=== PATIENT | female | born 1950 | race Caucasian/White ===

== ENCOUNTER 2017-07-26 06:33 | Day surgery (SDC) | payer MEDICARE, BC ==
[~2017-07-26 06:33] MED LIST: Lidocaine 1%/Sod Bicarbonate in NS 8.4% 1 ML Syringe PRN; Sodium Chloride 0.9% 10 ML Syringe FLUSH PRN
[2017-07-26] MEDS ORDERED: Propofol 200 MG/20 ML SDV ONE (06:54)
[2017-07-26] MEDS ORDERED: ceFAZolin 1 GM Vial ONE (06:54)
[2017-07-26] MEDS ORDERED: Lactated Ringers 1,000 ML ONE (06:54)
[2017-07-26] MEDS ORDERED: Lidocaine 1% 4 ML ONE (06:54)
[2017-07-26] MEDS ORDERED: Rocuronium 50 MG/5 ML Vial ONE (06:54)
[2017-07-26] MEDS ORDERED: Midazolam 1 MG/ML 2 ML SDV ONE (06:54)
[2017-07-26] MEDS ORDERED: fentaNYL 250 MCG/5 ML SDV ONE (06:54)
[2017-07-26] MEDS ORDERED: Ondansetron 4 MG/2 ML SDV ONE (06:54)
[2017-07-26] MEDS ORDERED: Sodium Chloride 0.9% 50 ML SDV ONE (06:59)
[2017-07-26] MEDS ORDERED: Lidocaine 1% with EPINEPHrine 1:100,000 20 ML MDV ONE (06:59)
[2017-07-26] MEDS: Lactated Ringers 1,000 ML IV SCH ×2 (07:05→11:04)
--- NOTE | 2017-07-26 07:22 | PCM.PREANE ---
Preanesthetic Assessment - Anesthesia/Transfusion/Family Hx Type of Anesthesia Reaction: Excessive Nausea/Vomiting Family History of Anesthesia Reaction: No Transfusion History: No Prior Transfusion(s) - Review of Systems General: No Symptoms Pulmonary: Wheezing (asthma), Cough (asthma) Cardiovascular: No Symptoms Gastrointestinal: No Symptoms Neurological: No Symptoms Other: Reports: None - Physical Assessment NPO Status Date: 07/25/17 NPO Status Time: 21:00 Pulse: 69 O2 Sat by Pulse Oximetry: 95 Respiratory Rate: 16 Blood Pressure: 144/74 Temperature: 99.8 F Height: 5 ft 3 in Weight: 69 kg ASA Class: 2 Mental Status: Alert & Oriented x3 Airway Class: Mallampati = 1 Dentition: Reports: Normal Dentition Thyro-Mental Finger Breadths: 2 Mouth Opening Finger Breadths: 3 ROM/Head Extension: Full Lungs: Clear to Auscultation, Normal Respiratory Effort Cardiovascular: Regular Rate, Regular Rhythm - Lab Values: Laboratory Last Values Urine Color Yellow (Yellow) 07/26/17 06:40 Urine Appearance Clear (Clear) 07/26/17 06:40 Urine pH 6.0 (5.0-8.0) 07/26/17 06:40 Ur Specific [place] 1.020 (1.005-1.030) 07/26/17 06:40 Urine Protein Negative (Negative) 07/26/17 06:40 Urine Glucose (UA) Negative (Negative) 07/26/17 06:40 Urine Ketones Negative (Negative) 07/26/17 06:40 Urine Occult Blood Negative (Negative) 07/26/17 06:40 Urine Nitrite Negative (Negative) 07/26/17 06:40 Urine Bilirubin Negative (Negative) 07/26/17 06:40 Urine Urobilinogen 0.2 (0.2-1.0) 07/26/17 06:40 Ur Leukocyte Esterase 2+ (Negative) H 07/26/17 06:40 Urine RBC Not seen /hpf (0-5) 07/26/17 06:40 Urine WBC 5-10 /hpf (0-5) H 07/26/17 06:40 Ur Epithelial Cells 0-5 /hpf (0-5) 07/26/17 06:40 Urine Bacteria Few /hpf (FEW) 07/26/17 06:40 Urine Mucus Few /hpf (FEW) 07/26/17 06:40 07/06/17 Lytes WNL BUN 19 Cr 0.70 Hgb 14.6 Plt 259 - Imaging/EKG Impressions: 07/26/17 EKG SR rate 68 - Allergies Allergies/Adverse Reactions: Allergies Allergy/AdvReac Type Severity Reaction Status Date / Time Penicillins Allergy Cannot Verified 07/25/17 13:34 Remember - Blood Blood Available: Yes - Acknowledgements Anesthesia Type Planned: General Anesthesia Pt an Appropriate Candidate for the Planned Anesthesia: Yes Alternatives and Risks of Anesthesia Discussed w Pt/Guardian: Yes Pt/Guardian Understands and Agrees with Anesthesia Plan: Yes PreAnesthesia Questionnaire HEENT History: Reports: Impaired Vision Other HEENT History: wears glasses Cardiovascular History: Reports: High Cholesterol, Hypertension Respiratory History: Reports: Asthma, Other (See Below) Other Respiratory History: self diagnoses sleep apnea Gastrointestinal History: Reports: GERD Genitourinary History: Reports: Other (See Below) Other Genitourinary History: UTI, nocuturia, prolapse, vaginitis LEGAL RECORDS MANAGER History: Reports: None Musculoskeletal History: Reports: None Neurological History: Reports: None Psychiatric History: Reports: None Endocrine/Metabolic History: Reports: None Hematologic History: Reports: None Immunologic History: Reports: None Oncologic (Cancer) History: Reports: None Dermatologic History: Reports: None - Past Surgical History Head Surgeries/Procedures: Reports: None HEENT Surgical History: Reports: Tonsillectomy Cardiovascular Surgical History: Reports: Other (See Below) Other Cardiovascular Surgeries/Procedures: patent ductus arteriosus repair Respiratory Surgical History: Reports: None GI Surgical History: Reports: None Female Surgical History: Reports: None Male Surgical History: Reports: None Endocrine Surgical History: Reports: None Neurological Surgical History: Reports: None Musculoskeletal Surgical History: Reports: None Oncologic Surgical History: Reports: None Dermatological Surgical History: Reports: None - SUBSTANCE USE Smoking Status *Q: Never Smoker Tobacco Use Within Last Twelve Months: No Second Hand Smoke Exposure: No Days Per Week of Alcohol Use: 1 (so very little) Recreational Drug Use History: No - HOME MEDS Home Medications: Home Meds Cholecalciferol (Vitamin D3) [Vitamin D3] 5,000 unit PO DAILY 07/25/17 [History] Estradiol [Yuvafem] 10 mcg VAG ASDIRECTED 07/25/17 [History] Flaxseed Oil 1,000 mg PO DAILY 07/25/17 [History] Losartan/Hydrochlorothiazide [Hyzaar 100-12.5 Tablet] 1 tab PO DAILY 07/25/17 [ History] Multivitamin [Zoo Chews] 1 tab PO DAILY 07/25/17 [History] Simvastatin [Zocor] 10 mg PO DAILY 07/25/17 [History] Turmeric Root Extract [Turmeric] 2 cap PO DAILY 07/25/17 [History] Ubidecarenone [Coq-10] 100 mg PO DAILY 07/25/17 [History] - CURRENT (IN HOUSE) MEDS Current Meds: Current Medications Lactated Ringer's (Ringers, Lactated) 1,000 mls @ 125 mls/hr IV ASDIRECTED CALVIN Stop: 07/26/17 23:00 Lidocaine/Sodium Bicarbonate (Buffered Lidocaine 1% In Ns 8.4%) 0.25 ml .XX ONETIME PRN PRN Reason: Prior to IV Start Stop: 07/26/17 18:00 Sodium Chloride (Saline Flush) 10 ml FLUSH ASDIRECTED PRN PRN Reason: Keep Vein Open Stop: 07/26/17 18:00 Discontinued Medications Cefazolin Sodium (Ancef) Confirm Administered Dose 2 gm .ROUTE .STK-MED ONE Stop: 07/26/17 06:55 Fentanyl (Sublimaze) Confirm Administered Dose 250 mcg .ROUTE .STK-MED ONE Stop: 07/26/17 06:55 Lactated Ringer's (Ringers, Lactated) Confirm Administered Dose 1,000 mls @ as directed .ROUTE .STK-MED ONE Stop: 07/26/17 06:55 Lidocaine HCl (Xylocaine-Mpf 1%) Confirm Administered Dose 4 mls @ as directed .ROUTE .STK-MED ONE Stop: 07/26/17 06:55 Lidocaine/Epinephrine (Xylocaine 1% With Epinephrine 1:100,000) Confirm Administered Dose 20 ml .ROUTE .STK-MED ONE Stop: 07/26/17 07:00 Midazolam HCl (Versed 1 Mg/Ml) Confirm Administered Dose 2 mg .ROUTE .STK-MED ONE Stop: 07/26/17 06:55 Ondansetron HCl (Zofran) Confirm Administered Dose 4 mg .ROUTE .STK-MED ONE Stop: 07/26/17 06:55 Propofol (Diprivan 20 Ml) Confirm Administered Dose 200 mg .ROUTE .STK-MED ONE Stop: 07/26/17 06:55 Rocuronium [place] (Zemuron) Confirm Administered Dose 50 mg .ROUTE .[employer]-MED ONE Stop: 07/26/17 06:55 Sodium Chloride (Normal Saline) Confirm Administered Dose 50 ml .ROUTE .Rigel-MED ONE Stop: 07/26/17 07:00
[2017-07-26] MEDS ORDERED: Albuterol 0.083% 2.5 MG/3 ML Neb Soln NEB ONE (07:25)
[2017-07-26] MEDS ORDERED: Scopolamine 1.5 MG Transdermal Patch TRDERM ONE (07:25)
[2017-07-26] MEDS ORDERED: Meperidine PF 50 MG/ML Syringe IVPUSH PRN (08:00)
[2017-07-26] MEDS ORDERED: fentaNYL 100 MCG/2 ML SDV IVPUSH PRN (08:00)
[2017-07-26] MEDS ORDERED: HYDROmorphone 0.5 MG/0.5 ML Syringe IVPUSH PRN (08:00)
[2017-07-26] MEDS ORDERED: Ondansetron 4 MG/2 ML SDV IVPUSH PRN ×2 (08:00→09:00)
[2017-07-26] MEDS ORDERED: Dexamethasone 4 MG/ML 5 ML MDV ONE (08:06)
[2017-07-26] MEDS ORDERED: ePHEDrine 50 MG/ML SDV ONE (08:08)
[2017-07-26] MEDS ORDERED: Ketorolac 30 MG/ML SDV ONE (09:00)
[2017-07-26] MEDS ORDERED: Acetaminophen/oxyCODONE 325-5 MG Tab PO PRN (09:00)
[2017-07-26] MEDS ORDERED: Glycopyrrolate 0.2 MG/ML SDV ONE (09:02)
[2017-07-26] MEDS ORDERED: Neostigmine Methylsulfate 10 MG/10 ML MDV ONE (09:02)
--- NOTE | 2017-07-26 09:07 | PCM.OPNOTE ---
- General Post-Op/Procedure Note Date of Surgery/Procedure: 07/26/17 Operative Procedure(s): Total vaginal hysterectomy, bilateral salpingo- oophorectomy, anterior and posterior vaginal repair with perineoplasty Findings: 1. Grade 3 cystocele. 2. Grade 3 rectocele 3. Grade 3 uterine descensus Pre Op Diagnosis: 1. Grade 3 cystocele. 2. Grade 3 uterine descensus. 3. Grade 3 rectocele Post-Op Diagnosis: Same Anesthesia Technique: General ET Tube Other Anesthesia Type: Lidocaine quarter percent with epinephrine local approximately 30 mL total Primary Surgeon: Abdiel Peguero Secondary Surgeon: Elvis Franco Anesthesia Provider: Tana Edwards Rounding Machine Tender: Karol Larson Pathology: Uterus, bilateral tubes and ovaries in one specimen containing Fluid Replacement, Intraop: 1,700 EBL in mLs: 20 Complications: None Condition: Good Free Text/Narrative:: Surgery duration: 57 minutes Procedure: The patient was placed in supine position on the operating table. She received 2 g of Ancef preoperatively for infection prophylaxis and had sequential compression stockings in place for DVT prophylaxis. General endotracheal anesthesia was accomplished. After positioning, and adequate prep and drape, the procedure was then performed. Sterile speculum was placed in the vagina and cervix was visualized. Cervix was injected with [lidocaine quarter percent with epinephrine]. [20 cc] used. A full circumference incision was made in the cervical epithelium. The bladder was pushed well back off cervix. Posterior cul-de-sac was then entered sharply without problems. Left uterosacral was crossclamped with a Endoseal vessel closure system. The left uterosacral and then the right uterosacral ligament pedicles were developed using the LigaSure system. The anterior cul-de-sac was then entered without problems and the uterine vasculature, cardinal ligament and broad ligament then developed using Endoseal vessel closure system. The uterus was inverted at this time and upper broad ligament fallopian tube pedicles were crossclamped with Bibi clamps. Specimen was totally removed. Both these pedicles were then secured with the same vessel closure system. Left and right fallopian tube was normal but atrophic in appearance secondary to menopause. Using the vessel closure system each of the tubes was then removed and sent with the specimen. Ovaries removed in similar fashion bilaterally all specimens were sent in separate container. . The patient was found to be hemostatically intact at this time. A pursestring suture was and placed in the peritoneal cavity externalizing pedicles in case of bleeding. Anterior vaginal repair was performed in the routine fashion. The midline epithelium was grasped approximately 2 cm from the urethral meatus. The epithelium at the vaginal cuff after removal of the uterus was grasped 2 with Allis clamps. The epithelium was infiltrated with lidocaine quarter percent with epinephrine approximately 10 mL. Midline incision was made in the epithelium was dissected off the underlying support tissue. The vesicovaginal fascia that remained was then reapproximated midline with approximately 6 the type sutures of 0 Monocryl. This effectively reduced the cystocele. Excess epithelium was removed on each side sharply and the epithelium was reapproximated using 3-0 Monocryl in 2 short running sutures. At this time the vaginal cuff was closed anteriorly to posteriorly with 0 Monocryl in a running locked fashion. Posterior repair was then performed.The uppermost portion of the rectocele was identified and was grasped midline with an Allis clamp. The introital area was grasped at approximately the 4:00 and 8:00 positions at the junction of the vaginal and vulvar epithelium. The area of epithelium was then infiltrated with lidocaine quarter percent with epinephrine. A viktor-shaped piece of epithelium was removed from the posterior introital and perineal area. The vaginal epithelium was then undermined superiorly to the top of the rectocele. Was then incised midline. With sharp and blunt dissection the epithelium was then dissected off of the underlying vesicovaginal fascia. At this point approximately 5 sutures of 0 Monocryl were placed to reapproximate the lateral supportive tissue midline and reduce the rectocele. The excess epithelium was then excised and the epithelium overlying the rectocele repair was then reapproximated with a running suture of 3-0 Monocryl. Perineoplasty was performed using 2 V-type stitches of 0 Monocryl. This lengthened the perineal body and the vagina. Also change the angle of vagina. At this point the epithelium over the perineum was closed in an episiotomy fashion using the 3-0 Monocryl suture.
--- NOTE | 2017-07-26 09:11 | PCM.POSTAN ---
POST ANESTHESIA ASSESSMENT - MENTAL STATUS Mental Status: Somnolent - VITAL SIGNS Pulse Rate: 83 SaO2: 96 Resp Rate: 17 Blood Pressure: 132/65 Temperature: 98.9 F - RESPIRATORY Respiratory Status: Respiratory Rate WNL, Airway Patent, O2 Saturation Stable, Supplemental Oxygen - CARDIOVASCULAR CV Status: Pulse Rate WNL, Blood Pressure Stable - GASTROINTESTINAL GI Status: No Symptoms - PAIN Pain Score: 0 (denies pain) - POST OP HYDRATION Hydration Status: Adequate & Stable
[2017-07-26 11:18] VITALS: BP 108/54
--- NOTE | 2017-07-26 13:55 | PCM48HPAN ---
Post Anesthesia Note - EVALUATION WITHIN 48HRS OF ANESTHETIC Vital Signs in Normal Range: Yes Patient Participated in Evaluation: Yes Respiratory Function Stable: Yes Airway Patent: Yes Cardiovascular Function Stable: Yes Hydration Status Stable: Yes Pain Control Satisfactory: Yes Nausea and Vomiting Control Satisfactory: Yes Mental Status Recovered: Yes
== END 2017-07-26 12:08 | disposition home or self-care (01) ==
LOC: JD.SDS 06:33
PROVIDERS: ATTEND Obstetrics & Gynecology
DX: N84.0 Polyp of corpus uteri (principal); D25.9 Leiomyoma of uterus, unspecified; N81.4 Uterovaginal prolapse, unspecified; N81.6 Rectocele; E78.00 Pure hypercholesterolemia, unspecified; I10 Essential (primary) hypertension; J45.909 Unspecified asthma, uncomplicated; Z90.89 Acquired absence of other organs; Z98.890 Other specified postprocedural states; Z88.0 Allergy status to penicillin; Z79.899 Other long term (current) drug therapy; Z87.440 Personal history of urinary (tract) infections
CPT/HCPCS: 36415; 57260; 58262; 81001; 86850; 86900; 86901; 87086; 93005; A9270; J0690; J1100; J1885; J2250; J2405; J2710; J3010; J3490; J7120; 00944; 88305; J2704

== ENCOUNTER 2017-10-22 11:26 | Emergency (ER) | payer MEDICARE, BC ==
--- NOTE | 2017-10-22 11:38 | EDM.PDOC ---
ED HPI GENERAL MEDICAL PROBLEM - General Chief Complaint: Abdominal Pain Stated Complaint: RIGHT SIDE PAIN Time Seen by Provider: 10/22/17 11:37 Source of Information: Reports: Patient History Limitations: Reports: No Limitations - History of Present Illness INITIAL COMMENTS - FREE TEXT/NARRATIVE: 67-year-old female presents the ED with diffuse abdominal pain although it's more localized to the right lower quadrant. She reports that she developed nausea and vomiting a good portion of eary am hours yesterday. Emesis was bilious. No blood. She had associated diffuse right upper quadrant right mid abdominal pain at that time. For the last 2 days however pain is increased in intensity and is now felt mostly in the right lower quadrant. It hurts a little bit to walk into getting in and out of the vehicle but it hurts quite badly to cough or sneeze. Patient has no appetite and has been drinking only water for the last 2 days. Denies any problems voiding. Aware of low-grade fever. Previous abdominal surgery as a vaginal hysterectomy with removal of both ovaries and bladder repair [address] Peguero. Onset: Gradual Onset Date: 10/21/17 Onset Time: 01:00 Duration: Hour(s): Location: Reports: Abdomen (Right pete-abdominal pain worse right lower quadrant with associated loss of appetite.) Quality: Reports: Ache Severity: Moderate (Pain is not bad if she's not moving but 3 or 4 of walking.) Improves with: Reports: Rest Worsens with: Reports: Other, Movement (Coughing or sneezing causes severe pain. Anal with walking and getting in and out of the vehicle.) Context: Denies: Activity, Exercise, Lifting, Sick Contact, Trauma, Other Associated Symptoms: Reports: Fever/Chills, Loss of Appetite, Malaise, Nausea/ Vomiting. Denies: Confusion, Chest Pain, Cough, cough w sputum, Diaphoresis ( Perhaps low-grade fever no chills), Headaches, Rash (In at onset of illness vomited about 5 or 6 times with bilious emesis and dry heaves.), Seizure, Shortness of Breath, Syncope Treatments HOME CARE RN: Reports: Other (see below) (None.) Abdomen Pain Score (Numeric/FACES): 8 - Related Data Allergies Allergy/AdvReac Type Severity Reaction Status Date / Time Penicillins Allergy Cannot Verified 07/25/17 13:34 Remember Home Meds: Home Meds Cholecalciferol (Vitamin D3) [Vitamin D3] 5,000 unit PO DAILY 07/25/17 [History] Flaxseed Oil 1,000 mg PO DAILY 07/25/17 [History] Losartan/Hydrochlorothiazide [Hyzaar 100-12.5 Tablet] 1 tab PO DAILY 07/25/17 [ History] Multivitamin [Zoo Chews] 1 tab PO DAILY 07/25/17 [History] Simvastatin [Zocor] 10 mg PO DAILY 07/25/17 [History] Turmeric Root Extract [Turmeric] 2 cap PO DAILY 07/25/17 [History] Ubidecarenone [Coq-10] 100 mg PO DAILY 07/25/17 [History] Past Medical History HEENT History: Reports: Impaired Vision Other HEENT History: wears glasses Cardiovascular History: Reports: High Cholesterol, Hypertension Respiratory History: Reports: Asthma, Other (See Below) Other Respiratory History: self diagnoses sleep apnea Gastrointestinal History: Reports: GERD Genitourinary History: Reports: Other (See Below) Other Genitourinary History: UTI, nocuturia, prolapse, vaginitis [employer] History: Reports: None Musculoskeletal History: Reports: None Neurological History: Reports: None Psychiatric History: Reports: None Endocrine/Metabolic History: Reports: None Hematologic History: Reports: None Immunologic History: Reports: None Oncologic (Cancer) History: Reports: None Dermatologic History: Reports: None - Past Surgical History Head Surgeries/Procedures: Reports: None HEENT Surgical History: Reports: Tonsillectomy Cardiovascular Surgical History: Reports: Other (See Below) Other Cardiovascular Surgeries/Procedures: patent ductus arteriosus repair Respiratory Surgical History: Reports: None GI Surgical History: Reports: None Female Surgical History: Reports: None Male Surgical History: Reports: None Endocrine Surgical History: Reports: None Neurological Surgical History: Reports: None Musculoskeletal Surgical History: Reports: None Oncologic Surgical History: Reports: None Dermatological Surgical History: Reports: None Social & Family History - Tobacco Use Smoking Status *Q: Never Smoker Second Hand Smoke Exposure: No - Caffeine Use Caffeine Use: Reports: None - Alcohol Use Days Per Week of Alcohol Use: 1 (so very little) - Recreational Drug Use Recreational Drug Use: No Drug Use in Last 12 Months: No - Living Situation & Occupation Living situation: Reports: Occupation: Employed ED ROS GENERAL - Review of Systems Review Of Systems: See Below Constitutional: Reports: Fever, Malaise, Weakness, Fatigue, Decreased Appetite, Weight Loss. Denies: Chills (Low-grade) HEENT: Reports: No Symptoms (No appetite at all the last 2 days) Respiratory: Reports: No Symptoms Cardiovascular: Reports: No Symptoms Endocrine: Reports: No Symptoms GI/Abdominal: Reports: Abdominal Pain (See history of present illness), Nausea, Vomiting (At onset of illness 2 days ago). Denies: Constipation, Diarrhea : Reports: No Symptoms Musculoskeletal: Reports: No Symptoms Skin: Reports: No Symptoms (No back or flank pain) Neurological: Reports: No Symptoms Psychiatric: Reports: No Symptoms Hematologic/Lymphatic: Reports: No Symptoms Immunologic: Reports: No Symptoms ED EXAM, GI/ABD - Physical Exam Exam: See Below Exam Limited By: No Limitations General Appearance: Alert, WD/WN, No Apparent Distress Eyes: Bilateral: Normal Appearance (No jaundice.) Throat/Mouth: Normal Inspection (Tongue is mildly dry and coated), Normal Lips, Normal Oropharynx, Other Head: Normocephalic Neck: Normal Inspection, Supple, Non-Tender, Full Range of Motion. No: Lymphadenopathy (L), Lymphadenopathy (R) Respiratory/Chest: No Respiratory Distress, Lungs Clear, Normal Breath Sounds, No Accessory Muscle Use, Chest Non-Tender Cardiovascular: Normal Peripheral Pulses, Regular Rate, Rhythm, No Edema, No Murmur GI/Abdominal Exam: Distended (Slightly distended and tender to percussion in the right hemiabdomen.), Guarding (Minimal right lower quadrant.), Tender ( Right lower quadrant), Abnormal Bowel Sounds (Absence of bowel sounds on exam.) . No: Rebound ( with very minimal guarding and no rebound.) Back Exam: Normal Inspection, Full Range of Motion. No: CVA Tenderness (L), CVA Tenderness (R) Extremities: Normal Inspection, Normal Range of Motion, Non-Tender, No Pedal Edema Neurological: Alert, Oriented, CN II-XII Intact, Normal Cognition Psychiatric: Normal Affect, Normal Mood Skin Exam: Warm, Dry, Intact, Normal Color, No Rash EKG INTERPRETATION EKG Date: 10/22/17 Time: 12:35 Rhythm: NSR Rate (Beats/Min): 78 (Occasional unifocal PVCs) [place]: Normal P-Wave: Present QRS: Other (Incomplete right bundle branch block pattern. Early R-wave transition. Q waves noted in leads 3 and aVF consider possible old inferior wall myocardial infarction) ST-T: Other (There is a repolarization abnormality particular noted in V5 V6.) QT: Normal EKG Interpretation Comments: Abnormal ECG Course - Vital Signs Last Recorded V/S: Last Vital Signs Temp 36.7 C 10/22/17 11:36 Pulse 80 10/22/17 11:36 Resp 20 10/22/17 11:36 BP 132/60 10/22/17 11:36 Pulse Ox 96 10/22/17 11:36 - Orders/Labs/Meds Orders: Active Orders 24 hr Category Date Time Status EKG Documentation Completion [RC] STAT Care 10/22/17 11:59 Active Abdomen 1V Flat [CR] Stat Exams 10/22/17 11:48 Taken Abdomen Pelvis w Cont [CT] Stat Exams 10/22/17 12:15 Taken Chest 1V Frontal [CR] Stat Exams 10/22/17 13:18 Taken CULTURE BLOOD [BC] Stat Lab 10/22/17 12:20 Received CULTURE BLOOD [BC] Stat Lab 10/22/17 12:25 Received CULTURE URINE [RM] Stat Lab 10/22/17 13:35 Received Dextrose 5%-0.9% NaCl [Dextrose 5%-Normal Saline] 1,000 Med 10/22/17 12:00 Active ml IV ASDIRECTED Sodium Chloride 0.9% [Saline Flush] Med 10/22/17 12:28 Active 10 ml FLUSH ONETIME PRN Blood Culture x2 Reflex Set [OM.PC] Stat Oth 10/22/17 11:47 Ordered Medication Orders Dextrose/Sodium Chloride (Dextrose 5%-Normal Saline) 1,000 mls @ 999 mls/hr IV ASDIRECTED CALVIN Last Admin: 10/22/17 12:16 Dose: 999 mls/hr Sodium Chloride (Saline Flush) 10 ml FLUSH ONETIME PRN PRN Reason: IV FLUSH Last Admin: 10/22/17 14:05 Dose: 10 ml Labs: Laboratory Tests 10/22/17 10/22/17 10/22/17 Range/Units 12:15 12:20 12:20 WBC 19.49 H (3.98-10.04) K/mm3 RBC 4.53 (3.98-5.22) M/mm3 Hgb 13.6 (11.2-15.7) gm/L Hct 41.8 (34.1-44.9) % MCV 92.3 (79.4-94.8) fl MCH 30.0 (25.6-32.2) pg MCHC 32.5 (32.2-35.5) g/dl RDW Std Deviation 44.8 (36.4-46.3) fL Plt Count 321 (182-369) K/mm3 MPV 10.1 (9.4-12.3) fl Neutrophils % (Manual) 90 H (40-60) % Band Neutrophils % 0 (0-10) % Lymphocytes % (Manual) 4 L (20-40) % Atypical Lymphs % 0 % Monocytes % (Manual) 6 (2-10) % Eosinophils % (Manual) 0 L (0.7-5.8) % Basophils % (Manual) 0 L (0.1-1.2) Platelet Estimate Adequate Plt Morphology Comment Normal RBC Morph Comment Normal PT 11.2 (8.0-13.0) SECONDS INR 1.03 Sodium 137 (136-145) mEq/L Potassium 3.5 (3.5-5.1) mEq/L Chloride 100 (98-107) mEq/L Carbon Dioxide 26 (21-32) mEq/L Anion Gap 14.5 (5-15) BUN 15 (7-18) mg/dL Creatinine 0.9 (0.55-1.02) mg/dL Est Cr Clr Drug Dosing 50.18 mL/min Estimated GFR (MDRD) > 60 (>60) mL/min BUN/Creatinine Ratio 16.7 (14-18) Glucose 117 H (80-115) mg/dL Lactic Acid (0.4-2.0) mmol/L Calcium 10.8 H (8.5-10.1) mg/dL Total Bilirubin 1.7 H (0.2-1.0) mg/dL AST 17 (15-37) U/L ALT 16 (14-59) U/L Alkaline Phosphatase 104 (46-116) U/L C-Reactive Protein 35.6 H* (<1.0) mg/dL Total Protein 7.8 (6.4-8.2) g/dl Albumin 3.5 (3.4-5.0) g/dl Globulin 4.3 gm/dL Albumin/Globulin Ratio 0.8 L (1-2) Lipase 111 (73-393) U/L Urine Color (Yellow) Urine Appearance (Clear) Urine pH (5.0-8.0) Ur Specific [place] (1.005-1.030) Urine Protein (Negative) Urine Glucose (UA) (Negative) Urine Ketones (Negative) Urine Occult Blood (Negative) Urine Nitrite (Negative) Urine Bilirubin (Negative) Urine Urobilinogen (0.2-1.0) Ur Leukocyte Esterase (Negative) Urine RBC (0-5) /hpf Urine WBC (0-5) /hpf Ur Epithelial Cells (0-5) /hpf Urine Bacteria (FEW) /hpf Urine Mucus (FEW) /hpf 10/22/17 10/22/17 Range/Units 12:25 13:35 WBC (3.98-10.04) K/mm3 RBC (3.98-5.22) M/mm3 Hgb (11.2-15.7) gm/L Hct (34.1-44.9) % MCV (79.4-94.8) fl MCH (25.6-32.2) pg MCHC (32.2-35.5) g/dl RDW Std Deviation (36.4-46.3) fL Plt Count (182-369) K/mm3 MPV (9.4-12.3) fl Neutrophils % (Manual) (40-60) % Band Neutrophils % (0-10) % Lymphocytes % (Manual) (20-40) % Atypical Lymphs % % Monocytes % (Manual) (2-10) % Eosinophils % (Manual) (0.7-5.8) % Basophils % (Manual) (0.1-1.2) Platelet Estimate Plt Morphology Comment RBC Morph Comment PT (8.0-13.0) SECONDS INR Sodium (136-145) mEq/L Potassium (3.5-5.1) mEq/L Chloride (98-107) mEq/L Carbon Dioxide (21-32) mEq/L Anion Gap (5-15) BUN (7-18) mg/dL Creatinine (0.55-1.02) mg/dL Est Cr Clr Drug Dosing mL/min Estimated GFR (MDRD) (>60) mL/min BUN/Creatinine Ratio (14-18) Glucose (80-115) mg/dL Lactic Acid 1.0 (0.4-2.0) mmol/L Calcium (8.5-10.1) mg/dL Total Bilirubin (0.2-1.0) mg/dL AST (15-37) U/L ALT (14-59) U/L Alkaline Phosphatase (46-116) U/L C-Reactive Protein (<1.0) mg/dL Total Protein (6.4-8.2) g/dl Albumin (3.4-5.0) g/dl Globulin gm/dL Albumin/Globulin Ratio (1-2) Lipase (73-393) U/L Urine Color Yellow (Yellow) Urine Appearance Slt cloudy H (Clear) Urine pH 6.0 (5.0-8.0) Ur Specific [place] 1.020 (1.005-1.030) Urine Protein Trace H (Negative) Urine Glucose (UA) 2+ H (Negative) Urine Ketones 2+ H (Negative) Urine Occult Blood 1+ H (Negative) Urine Nitrite Positive H (Negative) Urine Bilirubin Negative (Negative) Urine Urobilinogen 1.0 (0.2-1.0) Ur Leukocyte Esterase 2+ H (Negative) Urine RBC 5-10 H (0-5) /hpf Urine WBC 10-20 H (0-5) /hpf Ur Epithelial Cells 10-20 H (0-5) /hpf Urine Bacteria Many H (FEW) /hpf Urine Mucus Not seen (FEW) /hpf Meds: Medications Generic Name Dose Route Start Last Admin Trade Name Freq PRN Reason Stop Dose Admin Dextrose/Sodium Chloride 1,000 mls @ 999 mls/hr 10/22/17 12:00 10/22/17 12:16 Dextrose 5%-Normal Saline IV 999 mls/hr ASDIRECTED CALVIN Administration Sodium Chloride 10 ml 10/22/17 12:28 10/22/17 14:05 Saline Flush FLUSH 10 ml ONETIME PRN Administration IV FLUSH Discontinued Medications Generic Name Dose Route Start Last Admin Trade Name Freq PRN Reason Stop Dose Admin Diatrizoate Meglum/Diatrizoate Sod 120 ml 10/22/17 12:28 10/22/17 14:05 Gastrografin 37% PO 10/22/17 12:29 90 ml ONETIME ONE Administration Cefepime HCl 2 gm/ Premix 50 mls @ 100 mls/hr 10/22/17 13:39 10/22/17 15:30 IV 10/22/17 14:08 100 mls/hr ONETIME ONE Administration Metronidazole 500 mg/ Premix 100 mls @ 100 mls/hr 10/22/17 13:40 10/22/17 13: 55 IV 10/22/17 14:39 100 mls/hr ONETIME ONE Administration Metronidazole Confirm 10/22/17 13:55 10/22/17 14:00 Flagyl 500 Mg In Ns 100 Ml Administered 10/22/17 13:56 Not Given Dose 100 mls @ as directed .ROUTE .STK-MED ONE Iopamidol 100 ml 10/22/17 12:28 10/22/17 14:05 Isovue-300 (61%) IVPUSH 10/22/17 12:29 100 ml ONETIME ONE Administration Metoclopramide HCl 7.5 mg 10/22/17 12:44 10/22/17 15:35 Reglan IVPUSH 10/22/17 12:45 Not Given ONETIME ONE Metoclopramide HCl 7.5 mg 10/22/17 12:45 10/22/17 15:35 Reglan IVPUSH 10/22/17 12:46 Not Given ONETIME ONE - Radiology Interpretation Free Text/Narrative:: 67-year-old female presents the ED with initial onset of illness in the early hours of yesterday a.m. with spontaneous nausea vomiting without diarrhea. Subsequently developed diffuse right pete-abdominal pain which is settled mostly in the right lower quadrant over the last 48 hours. Patient has complete loss of appetite and has not eaten for 2 days. She's been taking water only and mostly lying in bed. However low-grade fever but no chills. Denies any genitourinary complaints. No history of diverticulitis. Previous abdominal surgeries that of a vaginal-assisted hysterectomy with bilateral salpingo oophorectomy. Examination reveals slight guarding right lower quadrant with no rebound tenderness. Her history however is highly suggestive of appendicitis or diverticulitis. Plan routine labs including blood cultures 2. ECG will be done. One view of the abdomen to be done. Plan will be to start oral contrast after the KUB is completed. At present she is having very little pain or discomfort and no nausea or vomiting. IV will be D5 normal saline at open to rehydrate her. - Re-Assessments/Exams Free Text/Narrative Re-Assessment/Exam: 10/22/17 12:16 KUB reveals increased stool in the rectal vault and slightly in the descending colon. There is no sign of bowel obstruction. There is increased air in the colon in the right hemiabdomen. Plan will be to go ahead and provide oral contrast in preparation for CT of the abdomen and pelvis to rule out appendicitis. 10/22/17 12:46 patient feels like she might vomit a per oral contrast. We'll give her Reglan 7.5 mg IV. 10/22/17 13:00 white blood cell count is elevated at 19,490. This is highly suggestive of an infective process. Will start her on cefepime 2 g IV followed by Flagyl 500 mg IV in the suspicion she has underlying appendicitis. On examination she is chilled and appears more facially flushed and warm to palpation suggesting underlying fever. Once again denies any significant pain at this time. 10/22/17 13:44 Labs are back. Total white count is elevated at 19.49. Differential is pending. Hemoglobin is 13.6 with hematocrit of 41.8. Platelet count normal at 321,000. PT is 11.2 with an INR of 1.03. Sodium 137 with a potassium of 3.5. Chloride 100. Bicarbonate 26. Anion gap normal at 14.5. BUNs 15. Creatinine is 0.9. EGFR is greater than 60. Glucose is 117. Lactic acid 1.0. Calcium 10.8 which is elevated. Total bilirubin is elevated at 1.7. AST is 17. ELT is 16. C-reactive protein is pending lipase normal at 111. 10/22/17 14:34 Differential is now back on the white count showing 90% neutrophils no bands. CRP is markedly elevated at 35.6. Urinalysis shows 2+ glucose 2+ ketones and 1+ occult blood with positive nitrates and 2+ blood leukocyte esterase. The micro the urinalysis is not yet available. CT scan of the abdomen and pelvis has just returned and reveals evidence of marked pericholecystic fluid with an inflammatory response on the inferior pole of the gallbladder. There is also layering of gas within the gallbladder wall. No ductal dilatation is appreciated. Other findings are that of hypervascular lesion off the upper pole of the right kidney measuring 5.3 x 4.9 cm suggesting renal cell carcinoma. The left ureter also has a mildly hyperemic appearance suggestive of infection which would correlate with her positive urinary tract findings. There are nonobstructive left kidney stones in the renal tissue. 10/22/17 14:38 shows 5-10 RBCs per high-power field. There are 10-20 WBCs per high-power field as well as 10-20 epithelials by Harry with many bacteria appreciated. This would suggest a pyelonephritis. Urine culture ordered. 10/22/17 16:[address] Burciaga lead sales consultant surgeon at [facility] in [place] and he is accepted care of this patient. Determine whether or not to proceed with acute cholecystectomy versus interventional radiology draining the gallbladder. Patient will be transported to that institution per ground ambulance. Her antibiotics have been completed. 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 Coincidental finding of suspect renal cell carcinoma involving the superior pole of the right kidney identified on CT scan will have to be dealt with at a later time. Clinically she has a left-sided pyelonephritis with hyperemia and inflammation of the left ureter and kidney. Antibiotic for started with cefepime and Flagyl to cover both gallbladder and urinary tract infection. - My Orders Last 24 Hours: My Active Orders 10/22/17 11:47 Blood Culture x2 Reflex Set [OM.PC] Stat 10/22/17 11:48 Abdomen 1V Flat [CR] Stat 10/22/17 11:59 EKG Documentation Completion [RC] STAT 10/22/17 12:00 Dextrose 5%-0.9% NaCl [Dextrose 5%-Normal Saline] 1,000 ml IV ASDIRECTED 10/22/17 12:15 Abdomen Pelvis w Cont [CT] Stat 10/22/17 12:20 CULTURE BLOOD [BC] Stat 10/22/17 12:25 CULTURE BLOOD [BC] Stat 10/22/17 12:28 Sodium Chloride 0.9% [Saline Flush] 10 ml FLUSH ONETIME PRN 10/22/17 13:18 Chest 1V Frontal [CR] Stat 10/22/17 13:35 CULTURE URINE [RM] Stat - Assessment/Plan Last 24 Hours: My Active Orders 10/22/17 11:47 Blood Culture x2 Reflex Set [OM.PC] Stat 10/22/17 11:48 Abdomen 1V Flat [CR] Stat 10/22/17 11:59 EKG Documentation Completion [RC] STAT 10/22/17 12:00 Dextrose 5%-0.9% NaCl [Dextrose 5%-Normal Saline] 1,000 ml IV ASDIRECTED 10/22/17 12:15 Abdomen Pelvis w Cont [CT] Stat 10/22/17 12:20 CULTURE BLOOD [BC] Stat 10/22/17 12:25 CULTURE BLOOD [BC] Stat 10/22/17 12:28 Sodium Chloride 0.9% [Saline Flush] 10 ml FLUSH ONETIME PRN 10/22/17 13:18 Chest 1V Frontal [CR] Stat 10/22/17 13:35 CULTURE URINE [RM] Stat
[2017-10-22] MEDS ORDERED: Dextrose 5%-0.9% NaCl 1,000 ML IV SCH (12:00)
[2017-10-22] MEDS ORDERED: Sodium Chloride 0.9% 10 ML Syringe FLUSH PRN (12:28)
[2017-10-22] MEDS ORDERED: Iopamidol 612 MG/ML 100 ML Bottle IVPUSH ONE (12:28)
[2017-10-22] MEDS ORDERED: Diatrizoate Meglumine/Diatrizoate Sodium 37% 120 ML Bottle PO ONE (12:28)
[2017-10-22] MEDS ORDERED: Metoclopramide 10 MG/2 ML SDV IVPUSH ONE ×2 (12:44→12:45)
[2017-10-22] MEDS ORDERED: Cefepime 2 GM in Premix Bag 1 BAG IV ONE (13:39)
[2017-10-22] MEDS ORDERED: metroNIDAZOLE/Normal Saline 500 MG in Premix Bag 1 BAG IV ONE (13:40)
[2017-10-22] MEDS ORDERED: metroNIDAZOLE/Normal Saline 100 ML ONE (13:55)
[2017-10-22] MEDS ORDERED: Lactated Ringers 1,000 ML ONE (16:44)
[2017-10-22] MEDS ORDERED: Lactated Ringers 1,000 ML IV SCH (16:45)
[2017-10-22 17:15] VITALS: BP 104/41
--- NOTE | 2017-10-25 07:59 | CR ---
Chest: Portable view of the chest was obtained. Comparison: No previous study. Minimal increased density noted within the right lung base. Lungs otherwise are clear. Heart size is normal. Upper mediastinum is within normal limits for portable technique. Bony structures are grossly intact. Impression: 1. Slight increased density within right lung base. Findings could represent minimal area of pneumonia or atelectasis. 2. No additional abnormality is seen on portable chest x-ray. Diagnostic code #3
--- NOTE | 2017-10-25 07:59 | CR ---
Abdomen: Supine view of the abdomen was obtained. Comparison: No prior abdominal x-ray. Nonobstructing calculi are identified within the left kidney. Scoliosis is noted within the spine. Bowel gas pattern is normal. Impression: 1. Nonobstructing calculi within left kidney. Other incidental finding. Diagnostic code #3
--- NOTE | 2017-10-25 07:59 | CT ---
CT abdomen and pelvis Technique: Multiple axial sections were obtained from above the dome of the diaphragm inferiorly through the pubic symphysis. Intravenous and oral contrast has been given. Delayed images were also obtained through the bladder. Comparison: Prior abdominal x-ray performed earlier on same day (11:53 AM). Findings: Slight atelectasis within the right lung base is seen. Small calcification is seen within the upper right lobe of the liver believed to be incidental. Low density is noted next to the ligamentum teres fissure compatible with focal fat. Liver is otherwise unremarkable. Spleen appears normal. Small hiatal hernia is seen. Adrenal glands show no nodule. Kidneys show contrast enhancement. Several nonobstructing calculi are seen within the left kidney. Right kidney shows a mass measuring about 5.3 cm in greatest size. This is felt compatible with renal cell carcinoma. Renal vein felt to be patent. Low density seen within the inferior vena cava believed to be due to non-enhancement. Gallbladder shows dilatation. Gallbladder wall thickening is noted with air being seen within the gallbladder. Inflammatory change is identified around the gallbladder. Pancreas appears within normal limits. Aorta and iliac vessels show atherosclerotic change without aneurysmal dilatation. No retroperitoneal adenopathy is seen. No pelvic mass or adenopathy is seen. Several diverticuli are seen within the descending and sigmoid colon without diverticulitis. Delayed images show contrast within both distal ureters and within the bladder. Bone window settings were reviewed which show disc space narrowing with vacuum phenomena and degenerative sclerosis at L5-S1. Impression: 1. 5.3 cm right renal mass highly suspicious for renal cell carcinoma. 2. Dilated gallbladder with gallbladder wall thickening and surrounding inflammatory change as well as air within the gallbladder. These findings are suspicious for emphysematous cholecystitis. 3. Other findings as noted above believed to be incidental. Diagnostic code #9 I agree with preliminary report issued by [facility] ([facility] report finalized on 10/22/17, 3:26 PM Central Time)
== END 2017-10-22 16:50 ==
LOC: JD.ED 11:26
DX: K81.0 Acute cholecystitis (principal); N10 Acute pyelonephritis; C64.1 Malignant neoplasm of right kidney, except renal pelvis; I10 Essential (primary) hypertension; E78.00 Pure hypercholesterolemia, unspecified; Z88.0 Allergy status to penicillin; Z79.899 Other long term (current) drug therapy
CPT/HCPCS: 36415; 71010; 74000; 74177; 80053; 81001; 83605; 83690; 85025; 85610; 86140; 87040; 87086; 93005; 96361; 96365; 96367; 99285; J0692; J7042; J7050; J7120; Q9963; Q9967